=== PATIENT | male | born 1980 | race Two or more races ===

== ENCOUNTER 2016-08-31 19:19 | Emergency (ER) | payer OTHER ==
[~2016-08-31] VITALS: Ht 182.9 cm; Wt 108.4 kg
[2016-08-31] MEDS ORDERED: KETOROLAC 30 MG/1 ML ONE (20:15)
[2016-08-31] MEDS ORDERED: SODIUM CHLORIDE FLUSH 10ML SYR IVF ONE (20:30)
[2016-08-31] MEDS ORDERED: KETOROLAC 30 MG/1 ML IVPush ONE (20:30)
[2016-08-31] MEDS ORDERED: SODIUM CHLORIDE 0.9% 1,000ML IVBOLUS ONE (20:30)
[2016-08-31 21:02] LABS: HEMOGLOBIN 14.9 g/dL (13.7-18.0)
[2016-08-31 21:15] LABS: ASPARTATE AMINO TRANSFERASE 17 U/L (15-37); BLOOD UREA NITROGEN 11 mg/dL (7-18)
[2016-08-31 21:50] VITALS: BP 131/74
== END 2016-08-31 21:52 | disposition home or self-care (01) ==
LOC: ED 20:55
DX: N13.2 Hydronephrosis with renal and ureteral calculous obstruction (principal); F10.20 Alcohol dependence, uncomplicated; Y90.9 Presence of alcohol in blood, level not specified
CPT/HCPCS: 36415; 74176; 80053; 81003; 85025; 96361; 96374; 99285; J1885; J7030